=== PATIENT | female | born 1985 | race Caucasian/White ===

== ENCOUNTER 2017-08-07 11:45 | Emergency (ER) | payer SELFPAY ==
[~2017-08-07] VITALS: Ht 152.4 cm; Wt 68.0 kg
[2017-08-07 11:47] VITALS: BP 176/111; PULSE 122; RESP 18; TEMP 98.4; O2SAT 100
[2017-08-07 12:03] VITALS: BP 139/90; PULSE 88; RESP 16; TEMP 98.3; O2SAT 100
[2017-08-07] MEDS ORDERED: SODIUM CHLOR 0.9% 1000 ML INJ 1,000 ML IV SCH (12:21)
--- NOTE | 2017-08-07 12:26 | PD ---
HPI Chief Complaint: Flank/Kidney Pain Time Seen by Provider: 12:16 Travel History International Travel<30 days: No Contact w/Intl Traveler<30days: No Traveled to known affect area: No History of Present Illness HPI 32-year-old female presents to the emergency department for evaluation of left lower back pain that radiates to the left pelvic region that started 3 days ago , but worsened last night. Patient states she took ibuprofen this morning which has relieved much of the pain. Patient believes she may be . Her last menstrual cycle was 2 and half weeks ago. She reports a G1, P1 with a 15-year-old daughter. Patient denies any chronic medical problems. She takes no prescribed medications. She denies any history of nephrolithiasis. She states she has had a strong odor to her urine. She states she has history of UTIs. However, she states the symptoms seem worse than her typical UTI. Patient denies any abnormal vaginal discharge. However, she is requesting to be tested for STDs. No exacerbating wrist. Ibuprofen relieve symptoms. Severity is mild. PFSH Past Medical History Hepatitis: Yes Tetanus Vaccination: Unknown Influenza Vaccination: No ?: Unknown LMP: 07/21/2017 Past Surgical History Tonsillectomy: Yes Social History Alcohol Use: No Tobacco Use: Yes Substance Use: No (IN RECOVERY) Allergies-Medications (Allergen,Severity, Reaction): Coded Allergies: No Known Allergies (Unverified , 08/07/17) Reported Meds & Prescriptions Reported Meds & Active Scripts Active No Active Prescriptions or Reported Medications Review of Systems Except as stated in HPI: all other systems reviewed are Neg Physical Exam Narrative GENERAL: Well-nourished, well-developed female patient, ambulatory. Afebrile. SKIN: Focused skin assessment warm/dry. HEAD: Normocephalic. Atraumatic. EYES: No scleral icterus. No injection or drainage. NECK: Supple, trachea midline. No JVD or lymphadenopathy. CARDIOVASCULAR: Regular rate and rhythm without murmurs, gallops, or rubs. RESPIRATORY: Breath sounds equal bilaterally. No accessory muscle use. Lungs sounds are clear to auscultation. GASTROINTESTINAL: Abdomen soft and nondistended. Mild suprapubic tenderness to palpation. Overall, abdominal exam is benign. MUSCULOSKELETAL: No cyanosis, or edema. BACK: Nontender without obvious deformity. No CVA tenderness. GENITOURINARY: Normal external genitalia without lesions or erythema. Vaginal vault without blood, mild white drainage. Cervical os was closed without drainage. No cervical motion tenderness. Uterus nontender and nonenlarged. Bilateral adnexa nontender without masses. This exam was done with MEEK Shaffer, at bedside. Data Data Last Documented VS Vital Signs Date Time Temp Pulse Resp B/P (MAP) Pulse Ox O2 Delivery O2 Flow Rate FiO2 08/07/17 12:03 98.3 88 16 139/90 (106) 100 Room Air Orders Orders Complete Blood Count With Diff (08/07/17 12:21) Comprehensive Metabolic Panel (08/07/17 12:21) Lipase (08/07/17 12:21) Urinalysis - C+S If Indicated (08/07/17 12:21) Iv Access Insert/Monitor (08/07/17 12:21) Ecg Monitoring (08/07/17 12:21) Oximetry (08/07/17 12:21) Sodium Chlor 0.9% 1000 Ml Inj (Ns 1000 M (08/07/17 12:21) Sodium Chloride 0.9% Flush (Ns Flush) (08/07/17 12:30) Ed Urine Pregnancytest Poc (08/07/17 12:21) Gc And Chlamydia Pcr (08/07/17 12:21) Wet Prep Profile (08/07/17 12:21) Urine Culture (08/07/17 12:40) Nitrofurantoin Monohyd Macrocr (Macrobid (08/07/17 15:00) Labs Laboratory Tests Test 08/07/17 12:40 08/07/17 13:00 White Blood Count 9.7 TH/MM3 Red Blood Count 4.57 MIL/MM3 Hemoglobin 13.8 GM/DL Hematocrit 40.2 % Mean Corpuscular Volume 87.9 FL Mean Corpuscular Hemoglobin 30.2 PG Mean Corpuscular Hemoglobin Concent 34.4 % Red Cell Distribution Width 13.6 % Platelet Count 270 TH/MM3 Mean Platelet Volume 8.1 FL Neutrophils (%) (Auto) 66.4 % Lymphocytes (%) (Auto) 27.7 % Monocytes (%) (Auto) 4.0 % Eosinophils (%) (Auto) 1.5 % Basophils (%) (Auto) 0.4 % Neutrophils # (Auto) 6.4 TH/MM3 Lymphocytes # (Auto) 2.7 TH/MM3 Monocytes # (Auto) 0.4 TH/MM3 Eosinophils # (Auto) 0.1 TH/MM3 Basophils # (Auto) 0.0 TH/MM3 CBC Comment DIFF FINAL Differential Comment Urine Color YELLOW Urine Turbidity HAZY Urine pH 6.0 Urine Specific [place] 1.022 Urine Protein TRACE mg/dL Urine Glucose (UA) NEG mg/dL Urine Ketones TRACE mg/dL Urine Occult Blood NEG Urine Nitrite POS Urine Bilirubin NEG Urine Urobilinogen LESS THAN 2.0 MG/DL Urine Leukocyte Esterase TRACE Urine RBC 1 /hpf Urine WBC 2 /hpf Urine Squamous Epithelial Cells 31 /hpf Urine Bacteria MANY /hpf Urine Mucus FEW /lpf Microscopic Urinalysis Comment CULTURE INDICATED Blood Urea Nitrogen 11 MG/DL Creatinine 0.77 MG/DL Random Glucose 83 MG/DL Total Protein 7.8 GM/DL Albumin 3.7 GM/DL Calcium Level 8.6 MG/DL Alkaline Phosphatase 95 U/L Aspartate Amino Transf (AST/SGOT) 14 U/L Alanine Aminotransferase (ALT/SGPT) 26 U/L Total Bilirubin 0.3 MG/DL Sodium Level 138 MEQ/L Potassium Level 4.0 MEQ/L Chloride Level 105 MEQ/L Carbon Dioxide Level 25.7 MEQ/L Anion Gap 7 MEQ/L Estimat Glomerular Filtration Rate 86 ML/MIN Lipase 185 U/L Clue Cells (Wet Prep) NONE SEEN Vaginal Trichomonas (Wet Prep) NONE SEEN Vaginal Yeast (Wet Prep) NONE SEEN MDM Medical Decision Making Medical Screen Exam Complete: Yes Emergency Medical Condition: Yes Medical Record Reviewed: Yes Differential Diagnosis UTI versus pyelonephritis versus cervicitis versus versus nephrolithiasis Narrative Course 32-year-old female presents to the emergency department for violation of left lower back pain that radiates to the pelvic region. On exam, she does appear well. Mild tenderness to suprapubic region, no other tenderness to palpation. No CVA tenderness. IV access established. CBC, CMP, lipase, UA, urine test are ordered and pending. Patient is requesting pelvic exam. Wet prep and swab for GC and chlamydia are ordered and pending. CBC is unremarkable. CMP shows no acute abnormality. Lipase is 185. UA showed positive nitrate, trace leukocyte esterase, many bacteria. UPT is negative. Wet prep is negative for clue cells, Trichomonas, yeast. On examination, patient has no pain and appears well. She is given first dose of Macrobid and will be discharged prescription for Macrobid. She verbalizes agreement and understanding. The patient was discharged in stable condition with instructions, including return instructions and follow up instructions. Diagnosis Primary Impression: Urinary tract infection Qualified Codes: N30.00 - Acute cystitis without hematuria Referrals: Primary Care Physician call for appointment Patient Instructions: General Instructions, Urinary Tract Infection in Women ( ED) Additional Instructions: Take antibiotic as directed until gone. Follow up with a primary care provider. Return to the emergency department for any acute, worsening of symptoms. Med/Other Pt SpecificInfo: Prescription(s) given Scripts Nitrofurantoin Monohydrate Macrocrystals (Macrobid) 100 Mg Capsule 100 MG PO BID for Infection for 7 Days, #14 CAP 0 Refills Prov: Yamile Black 08/07/17 Disposition: 01 DISCHARGE HOME Condition: Stable Yamile Black Aug 07, 2017 12:26
[2017-08-07] MEDS ORDERED: SODIUM CHLORIDE 0.9% FLUSH 10 ML FLUSH IV FLUSH PRN (12:30)
[2017-08-07 13:10] LABS: AUTOMATED NEUTROPHIL # 6.4 TH/MM3 (1.8-7.7); BASOPHIL % 0.4 % (0.0-2.0); EOSINOPHIL # 0.1 TH/MM3 (0-0.4); EOSINOPHIL % 1.5 % (0.0-4.0); HEMATOCRIT 40.2 % (35.0-46.0); HEMO FLAGS DIFF FINAL; LYMPH % 27.7 % (9.0-44.0); LYMPHOCYTE # 2.7 TH/MM3 (1.0-4.8); MEAN CELL VOLUME 87.9 FL (80.0-100.0); MEAN CORPUSCULAR HEMOGLOBIN 30.2 PG (27.0-34.0); MEAN CORPUSCULAR HGB CONC 34.4 % (32.0-36.0); NEUT % 66.4 % (16.0-70.0); PLATELET COUNT 270 TH/MM3 (150-450); RED BLOOD COUNT 4.57 MIL/MM3 (4.00-5.30); RED CELL DISTRIBUTION WIDTH 13.6 % (11.6-17.2); WHITE BLOOD COUNT 9.7 TH/MM3 (4.0-11.0)
[2017-08-07 13:19] LABS: BACTERIA, URINE MANY /hpf; BLOOD, URINE NEG (NEG); COMMENT (UR) CULTURE INDICATED; CULTURE IF INDICATED CULTURE INDICATED; GLUCOSE,URINE NEG (NEG); KETONE, URINE TRACE mg/dL (NEG); MUCUS URINE FEW /lpf (OCC); NITRITE,URINE POS (NEG); SQUAMOUS EPITHELIAL CELL URINE 31 /hpf (0-5); URINE COLOR YELLOW (YELLW/STRAW)
[2017-08-07 14:30] LABS: ALKALINE PHOSPHATASE 95 U/L (45-117); ALT (GPT) 26 U/L (10-53); ANION GAP 7 MEQ/L (5-15); AST (GOT) 14 U/L (15-37); BICARBONATE 25.7 MEQ/L (21.0-32.0); BLOOD UREA NITROGEN 11 MG/DL (7-18); CHLORIDE 105 MEQ/L (98-107); GLOMERULAR FILTRATION RATE 86 ML/MIN (>89); SODIUM (NA) 138 MEQ/L (136-145); TOTAL BILIRUBIN ADULT 0.3 MG/DL (0.2-1.0)
[2017-08-07] MEDS ORDERED: MACR100C2 PO (14:55)
[2017-08-07] MEDS ORDERED: NITROFURANTOIN MONOHYD MACROCR 100 MG CAP PO ONE (15:00)
[2017-08-07 15:41] VITALS: BP 135/78
[2017-08-07 17:15] LABS: CHLAMYDIA PCR NOT DETECTED (NOT DETECT); NEISSERIA PCR NOT DETECTED (NOT DETECT)
== END 2017-08-07 15:40 | disposition home or self-care (01) ==
LOC: NEPC 11:45
DX: N30.00 Acute cystitis without hematuria (principal); B96.20 Unspecified Escherichia coli [E. coli] as the cause of diseases classified elsewhere; Z72.0 Tobacco use
CPT/HCPCS: 80053; 81001; 83690; 85025; 87077; 87086; 87186; 87210; 87491; 87591; 99284; J7030